=== PATIENT | male | born 1995 | race Caucasian/White ===

== ENCOUNTER 2020-12-31 07:35 | Emergency (ER) | payer SELFPAY ==
[2020-12-31 07:51] VITALS: BP 96/76; PULSE 77; RESP 16; TEMP 36.9; O2SAT 97; BMI 25.8
--- NOTE | 2020-12-31 08:08 | ED.DENTAL ---
HPI - Dental/Oral General Chief complaint: Dental/Oral Stated complaint: dental pain Time Seen by Provider: 12/31/20 08:07 Source: patient Mode of arrival: ambulatory Limitations: no limitations History of Present Illness HPI Narrative: 25-year-old male otherwise healthy came in for evaluation of dental pain. 25-year-old male who broke his right upper premolar tooth (tooth 5.) About 4 weeks ago while chewing hard food, patient presented today with severe pain since last night. Pain described as constant mostly localized to the right upper jaw area, no radiation 2 years or to the neck. No fever or chills. Pain is worse with opening and closing the mouth or chewing food, nothing relieves the pain. Related Data Previous Rx's Medication Instructions Recorded amoxicillin 500 mg PO TID #20 cap 12/31/20 ibuprofen 800 mg PO Q8H PRN #20 tab 12/31/20 Allergies Allergy/AdvReac Type Severity Reaction Status Date / Time No Known Allergies Allergy Verified 12/31/20 08:07 Review of Systems Review of Systems: All other systems are reviewed and are negative Constitutional: Reports as per HPI and Reports no additional constitutional complaints Eyes: Reports as per HPI and Reports no additional eye complaints Reports system reviewed and no additional complaints, except as documented Cardiovascular: Reports as per HPI and Reports no additional cardiovascular complaints Respiratory: Reports as per HPI and Reports no additional respiratory complaints Gastrointestinal: Reports as per HPI and Reports no additional gastrointestinal complaints Genitourinary: Reports no additional female genitourinary complaints Musculoskeletal: Reports no additional musculoskeletal complaints Skin/Breast: Reports system reviewed and no additional complaints, except as docu Psychiatric: Reports no additional psychiatric complaints Endocrine: Reports no additional endocrine complaints Hematologic/Lymphatic: Reports no additional hematologic/lymphatic complaints Allergic/Immunologic: Reports no additional allergic/immunologic complaints Reports system reviewed and no additional complaints, except as documented and Reports Abnormal speech present [facility] Past Medical History Medical History No known health problems Social History Social History Alcohol intake: unknown Smoking Status: Current every day smoker Use of substances other than those prescribed or required for medical reasons: Unknown Advance Directives: No Advance Directives Information Provided: No Physical Exam Vital Signs: Vital Signs: Last Vital Signs Temp 98.4 F 12/31/20 07:51 Pulse 77 12/31/20 07:51 Resp 16 12/31/20 07:51 BP 96/76 12/31/20 07:51 Pulse Ox 97 12/31/20 07:51 Body Mass Index 25.8 Vital signs have been reviewed as appeared to be correct. Blood pressure normal. Heart rate normal. Respiration rate normal. Temperature normal. Oxygen saturation normal. Appearance: Alert. Oriented X3. No acute distress. Head: Normal external exam. Normocephalic. Atraumatic. No Dominique signs noted. No raccoon eyes noted Eyes: PERRLA. EOMI. Conjunctiva and sclera normal. Eyelids normal. ENT: TM's Normal. Pharynx normal. Uvula midline. Moist mucous membranes. No trismus noted. No drooling noted. No muffled voice noted. Dental exam: Tenderness over (tooth 5) 1st upper premolar tooth tenderness , with swelling and tenderness of the gum around it no discrete fluctuation or abscess. Neck: Normal inspection. Neck supple. FROM. No adenopathy. Thyroid Normal. No meningeal signs. No neck mass noted. CVS: Normal heart rate and rhythm. Heart sound normal. No murmurs noted. Pulses normal throughout. Respiratory: No respiratory distress. Painless inspiration. Breath sounds normal. No wheezes/rales/rhonchi noted. Chest nontender. No accessory muscle usage noted or decreased air movement noted. Abdomen: Soft and nontender. Bowel sounds normal in all 4 quadrants. No distention noted. No organomegaly noted. No visible injury noted. Back: No CVA tenderness. Full range of motion noted. Skin: Skin warm and dry. Normal skin color. Normal skin turgor. No rashes/lesions/lacerations noted. Extremities: No lower extremity edema. Extremities exhibit normal range of motion. Extremities nontender. Neuro: Oriented X 3. No motor deficit. No sensory deficit. Reflexes normal. Course Course Course Narrative: Assessment and plan: Dental infection and decay. Start the patient on amoxicillin/ibuprofen 800 mg/patient was instructed to follow up with dentist as soon as possible. Discharge Plan Discharge Clinical Impression: Toothache, Dental caries Patient Disposition: Home, Self-Care Instructions: Toothache (ED) Additional Instructions: Follow-up with your dentist in 2 days. Prescriptions: New amoxicillin 500 mg capsule 500 mg PO TID Qty: 20 RF: 0 ibuprofen 800 mg tablet 800 mg PO Q8H PRN (Reason: pain) Qty: 20 RF: 0 Referrals: Physician,None [Primary Care Provider] - 2 days (See your dentist in 2 days)
[2020-12-31] MEDS: oxyCODONE HCl Immed Release 5 MG TABLET PO (08:19)
[2020-12-31] MEDS: Amoxicillin 500 MG CAPSULE PO (08:19)
--- NOTE | 2020-12-31 09:00 | PC.NURSE ---
Patient arrives complaining of dental pain to upper right molar. Patient reports breaking tooth ~ 1 month ago. Last night awoke to worsening pain. Patient without obvious swelling or enlarged lymph nodes. No visible drainage. Respirations regular and even. Skin pwd. Evaluated by Dr. Santillan. Patient medicated with Amoxicillin and Oxycodone. Tolerated well. Will continue to monitor.
== END 2020-12-31 09:15 | disposition home or self-care (01) ==
PROVIDERS: Emergency Provider Emergency Medicine
DX: K02.9 Dental caries, unspecified (principal); K08.89 Other specified disorders of teeth and supporting structures; F17.200 Nicotine dependence, unspecified, uncomplicated
CPT/HCPCS: 99283; 99284

== ENCOUNTER 2021-04-25 04:15 | Emergency (ER) | payer SELFPAY ==
--- NOTE | ~2021-04-25 | US_ITS ---
EXAMINATION: US SCROTUM CLINICAL INFORMATION: Testicular pain.. COMPARISON: None TECHNIQUE: A sonogram of the scrotum was performed assessing nguyen-scale appearance and color Doppler flow. Spectral Doppler analysis of the arterial and venous flow were performed in the testes bilaterally. FINDINGS: RIGHT: Right testicle measures 5.2 x 2.6 x 3.6 cm, volume 25.4 mL. No focal testicular parenchymal lesions are visualized. Spectral Doppler analysis of the arterial and venous flow is normal in the right testis. Right epididymal head is normal in size. No right hydrocele or varicocele is seen. Right epididymal Doppler flow is normal. LEFT: Left testicle measures 5.1 x 2.6 x 3.3 cm, volume 23.4 mL. No focal testicular parenchymal lesions are visualized. Spectral Doppler analysis of the arterial and venous flow is normal in the left testis. Left epididymal head is normal in size. Cyst in the epididymal tail measuring 0.3 cm. No left hydrocele or varicocele is seen. Left epididymal Doppler flow is normal. US/US scrotum doppler IMPRESSION: No testicular torsion. Normal vascularity.
--- NOTE | ~2021-04-25 | US_ITS ---
EXAMINATION: US SCROTUM CLINICAL INFORMATION: Testicular pain.. COMPARISON: None TECHNIQUE: A sonogram of the scrotum was performed assessing nguyen-scale appearance and color Doppler flow. Spectral Doppler analysis of the arterial and venous flow were performed in the testes bilaterally. FINDINGS: RIGHT: Right testicle measures 5.2 x 2.6 x 3.6 cm, volume 25.4 mL. No focal testicular parenchymal lesions are visualized. Spectral Doppler analysis of the arterial and venous flow is normal in the right testis. Right epididymal head is normal in size. No right hydrocele or varicocele is seen. Right epididymal Doppler flow is normal. LEFT: Left testicle measures 5.1 x 2.6 x 3.3 cm, volume 23.4 mL. No focal testicular parenchymal lesions are visualized. Spectral Doppler analysis of the arterial and venous flow is normal in the left testis. Left epididymal head is normal in size. Cyst in the epididymal tail measuring 0.3 cm. No left hydrocele or varicocele is seen. Left epididymal Doppler flow is normal. US/US scrotum IMPRESSION: No testicular torsion. Normal vascularity.
--- NOTE | ~2021-04-25 | CT_ITS ---
EXAMINATION: CT ABDOMEN AND PELVIS WITHOUT CONTRAST CLINICAL INFORMATION: Left abdominal/scrotal pain. Rule out renal colic. COMPARISON: None TECHNIQUE: Multidetector volumetric imaging was performed from the superior aspect of the liver through the pubic symphysis. Sagittal and coronal reformatted images were obtained on the technologist's workstation. This CT examination was performed using dose optimization techniques as appropriate, variously including the following: *Automated exposure control *Adjustment of mA and/or kV according to patient size (this includes techniques or standardized protocols for targeted exams where dose is matched to indication/reason for exam; i.e. extremities or head) *Use of iterative reconstruction technique DLP: 532 mGy-cm FINDINGS: LUNG BASES: The visualized lung bases are unremarkable. LIVER, GALLBLADDER, AND BILIARY TREE: The liver is normal in size, shape, and attenuation. No focal hepatic lesion or biliary ductal dilatation is present. The gallbladder is unremarkable with no evidence of radiopaque gallstones, gallbladder wall thickening, or obvious pericholecystic inflammatory changes. PANCREAS: Unremarkable. SPLEEN: Unremarkable. ADRENAL GLANDS: Unremarkable. KIDNEYS AND URETERS: The kidneys are normal in size, shape, and attenuation. Mild left hydroureteronephrosis. 0.5 cm calculus in the distal ureter, approximately 2 cm proximal to the ureterovesicular junction. There are [address] at this location in a row. No right hydroureteronephrosis. There are 2 right-sided calculi, measuring up to 0.3 cm, 9 cm from the posterior axillary line. BLADDER: Unremarkable. GASTROINTESTINAL TRACT: The stomach is unremarkable. Normal caliber small bowel. No obstruction. Normal appendix. No colonic wall thickening or inflammatory change. No free air or free fluid. ABDOMINAL WALL: No significant hernia is appreciated. LYMPH NODES: Normal. VASCULAR: Unremarkable. PELVIC VISCERA: The prostate and seminal vesicles are unremarkable. OSSEOUS STRUCTURES: No acute or suspicious osseous abnormality. CT/CT abdomen pelvis wo con IMPRESSION: Mild left hydroureteronephrosis with multiple distal ureteral calculi measuring up to 0.5 cm. Nonobstructing right renal calculi.
--- NOTE | 2021-04-25 04:28 | ED_ITS ---
HPI - Male Genitourinary General Chief complaint: Urogenital-Male Stated complaint: abd pain/ testicle pain Time Seen by Provider: 04/25/21 04:20 Source: patient Mode of arrival: ambulatory History of Present Illness HPI Narrative: 26-year-old male without significant past medical history presents with acute onset of left testicular pain that started approximately 2 hours ago and patient states radiates up through his groin into his lower abdomen without associated fever, chills. Patient denies any urinary symptoms and states that this is never happened before. He has had prior renal colic at the age of 17. Related Data Previous Rx's Medication Instructions Recorded amoxicillin 500 mg capsule 500 mg PO TID #20 cap 12/31/20 ibuprofen 800 mg tablet 800 mg PO Q8H PRN #20 tab 12/31/20 ketorolac 10 mg tablet 10 mg PO Q6H PRN 5 Days #20 tab 04/25/21 prednisone 20 mg tablet 20 mg PO DAILY #4 tab 04/25/21 tamsulosin 0.4 mg capsule (Flomax) 0.4 mg PO BEDTIME #4 cap 04/25/21 Allergies Allergy/AdvReac Type Severity Reaction Status Date / Time No Known Allergies Allergy Verified 12/31/20 08:07 Review of Systems Review of Systems: Pertinent positives and negatives as stated in HPI 10 point review of systems is otherwise negative. PMFSH Past Medical History Source: nursing notes reviewed Medical History No known health problems Social History Social History Alcohol intake: unknown Advance Directives: No Physical Exam Vital Signs: Vital Signs: Last Vital Signs Temp 98.7 F 04/25/21 04:30 Pulse 87 04/25/21 04:30 Resp 20 04/25/21 04:30 BP 150/81 H 04/25/21 04:30 Pulse Ox 97 04/25/21 04:30 Body Mass Index 24.4 VITAL SIGNS: Reviewed. GENERAL: Well developed, well nourished, in no acute distress. HEAD: Normocephalic/atraumatic EYES: PERRLA, EOMI OROPHARYNX: no oral lesions noted, posterior pharynx clear LUNGS: Normal breath sounds. CARDIOVASCULAR: Regular rate and rhythm without noted murmurs ABDOMEN: Soft, non-tender, non-distended with bowel sounds. : Circumcised male, left testicle riding somewhat higher than right with pain on palpation but no observed erythema, epididymal tenderness no evidence of hernia SKIN: Inspection of the skin reveals no rashes NEUROLOGIC: Alert and oriented x 4. Strength and sensation to light touch were grossly intact x 4. Course Course Course Narrative: 26-year-old male with history and clinical presentation consistent with testicular torsion, renal colic, and gave pain meds and ordered scrotal ultrasound. On review of imaging the testicular duplex was negative for evidence of torsion in suspected likely renal colic and on review of CT scan there is noted mild left hydroureteronephrosis with multiple distal ureteral calculi measuring up to 0.5 cm. On re-evaluation patient has had ?50% improvement in his symptoms? and on discussion regarding referral to Urology he states that he is catching a bus up to [place] this morning at 10:30 a.m.. He says that he will be able to pick his prescriptions up from the pharmacy and he was strongly encouraged to follow-up with urology. Signed out to Dr. Lamar [facility] - Male Genitourinary Lab Data Result diagrams: 04/25/21 05:21 04/25/21 05:21 Labs: Lab Results 04/25/21 04/25/21 04/25/21 Range/Units 05:21 05:21 05:21 WBC 10.1 (4.8-10.8) X10*3/uL RBC 4.66 (4.60-5.80) X10*6/uL Hgb 14.0 (14.0-18.0) g/dl Hct 39.8 L (42-52) % MCV 85.4 (80-98) fL MCH 30.0 (27.0-33.0) pg MCHC 35.2 (31.0-36.0) g/dl RDW 12.5 (11.0-16.0) % Plt Count 166 (160-400) X10*3/uL MPV 9.7 (9.4-12.4) fL Immature Gran % (Auto) 0.3 (0.0-0.4) % Neut % (Auto) 72.5 (45-73) % Lymph % (Auto) 17.9 L (20-40) % [place] % (Auto) 7.6 (2-11) % Eos % (Auto) 1.4 (0-4) % Baso % (Auto) 0.3 (0-2) % Lymph # (Auto) 1.8 (1.2-4.9) X10*3/uL [place] # (Auto) 0.8 (0.1-1.2) X10*3/uL Eos # (Auto) 0.1 (0.0-0.4) X10*3/uL Baso # (Auto) 0.0 (0.0-0.2) X10*3/uL Abs Immat Gran (auto) 0.03 (0.00-0.03) X10*3/uL Absolute Neuts (auto) 7.3 (2.0-8.3) X10*3/uL Absolute Nucleated RBC 0.000 (0.0-0.012) X10*3/uL Nucleated RBC % (auto) 0.0 (0.0-0.2) /100WBC Sodium 141 (135-145) mmol/L Potassium 3.4 (3.3-5.1) mmol/L Chloride 111 H (96-108) mmol/L Carbon Dioxide 22 (22-29) mmol/L Anion Gap 11 L (12-20) BUN 15 (9-16) mg/dL Creatinine 1.61 H (0.5-1.4) mg/dL Estim Creat Clear Calc 71.7 Estimated GFR 52 Random Glucose 112 (60-115) mg/dL Calcium 9.1 (8.4-10.2) mg/dL Total Bilirubin < 0.2 (0.0-1.0) mg/dL AST 16 (5-37) U/L ALT 35 (0-40) U/L Alkaline Phosphatase 53 (39-117) U/L Total Protein 6.4 L (6.5-8.0) g/dL Albumin 4.0 (3.5-5.0) g/dL COVID-19 (PETE) Negative (Negative) COVID-19 Clin Com See Note Discharge Plan Discharge Clinical Impression: Renal colic, Ureterolithiasis, Creatinine elevation Patient Disposition: Home, Self-Care Instructions: Renal Colic (ED), Ureteral Stones (ED) Additional Instructions: 1. Increase fluid hydration especially with water and avoid and/or decrease use of caffeinated/carbonated beverages. 2. Strongly recommend that you follow-up with a urologist and the referral is provided to you below. 3. Tylenol 1000 mg, orally, every 6 hours as needed for pain control. Do not exceed 4000 mg within 24 hours. 4. Follow-up with your primary care provider in the next 2-3 days for re- evaluation. Return to the ER for acute worsening of symptoms. Prescriptions: New ketorolac 10 mg tablet 10 mg PO Q6H PRN (Reason: pain) 5 Days Qty: 20 RF: 0 tamsulosin [Flomax] 0.4 mg capsule 0.4 mg PO BEDTIME Qty: 4 RF: 0 prednisone 20 mg tablet 20 mg PO DAILY Qty: 4 RF: 0 No Action amoxicillin 500 mg capsule 500 mg PO TID Qty: 20 RF: 0 ibuprofen 800 mg tablet 800 mg PO Q8H PRN (Reason: pain) Qty: 20 RF: 0 Referrals: Physician,None [Primary Care Provider] - 2 days Joshua Dias MD [Physician] - 2 days (Evaluation and treatment for multiple ureteral stones (0.5 mm) with elevated creatinine and no leukocytosis. Pain well controlled.)
[2021-04-25 04:30] VITALS: BP 150/81; PULSE 87; RESP 20; TEMP 37.1; O2SAT 97; BMI 24.4
[2021-04-25] MEDS: Ketorolac Tromethamine 15 MG/ML VIAL IVPUSH (04:41)
[2021-04-25] MEDS: fentaNYL citrate/PF 100 MCG/2 ML VIAL 12.5 MCG IVPUSH (04:41)
[2021-04-25] MEDS: Acetaminophen 325 MG TABLET 975 MG PO (04:41)
--- NOTE | 2021-04-25 04:48 | PC.NURSE ---
pT MEDICATED CHARTED. OFF TO U/S VIA STRETCHER.
[2021-04-25] MEDS: 0.9 % Sodium Chloride 1,000 ML 999 ML IV (05:26)
[2021-04-25 05:27] LABS: MANUAL DIFF FLAG NO
[2021-04-25 05:30] LABS: Basophils Percent Auto 0.3 % (0-2); Eosinophils Absolute Auto 0.1 X10*3/uL (0.0-0.4); Eosinophils Percent Auto 1.4 % (0-4); Hematocrit 39.8 % (42-52); Imm Gran Abs Auto 0.03 X10*3/uL (0.00-0.03); Imm Gran Pct Auto 0.3 % (0.0-0.4); Lymphocytes Absolute Auto 1.8 X10*3/uL (1.2-4.9); Lymphocytes Percent Auto 17.9 % (20-40); Mean Corpuscular HGB Conc 35.2 g/dl (31.0-36.0); Mean Corpuscular Volume 85.4 fL (80-98); Mean Platelet Volume 9.7 fL (9.4-12.4); Monocytes Absolute Auto 0.8 X10*3/uL (0.1-1.2); Monocytes Percent Auto 7.6 % (2-11); Neutrophils Absolute Auto 7.3 X10*3/uL (2.0-8.3); Neutrophils Percent Auto 72.5 % (45-73); Platelet Count 166 X10*3/uL (160-400); Red Blood Count 4.66 X10*6/uL (4.60-5.80); Red Cell Distribution Width 12.5 % (11.0-16.0); White Blood Count 10.1 X10*3/uL (4.8-10.8)
[2021-04-25 05:45] LABS: COVID-19 Test Negative (Negative); IDNOW Serial# 9DD0AD1C
[2021-04-25 05:52] LABS: Alanine Aminotransferase 35 U/L (0-40); Alkaline Phosphatase 53 U/L (39-117); Anion Gap 11 (12-20); Aspartate Amino Transferase 16 U/L (5-37); Bilirubin Total < 0.2 mg/dL (0.0-1.0); Blood Urea Nitrogen 15 mg/dL (9-16); Calcium 9.1 mg/dL (8.4-10.2); Carbon Dioxide 22 mmol/L (22-29); Chloride 111 mmol/L (96-108); Creatinine Clr Calc Pharmacy 71.7; Estimated Glomerular Filt Rate 52; Glucose Random 112 mg/dL (60-115); Potassium 3.4 mmol/L (3.3-5.1); Sodium 141 mmol/L (135-145); Total Protein 6.4 g/dL (6.5-8.0)
[2021-04-25] MEDS: Tamsulosin HCL 0.4 MG CAPSULE PO (06:14)
== END 2021-04-25 08:24 | disposition home or self-care (01) ==
PROVIDERS: Emergency Provider Student in an Organized Health Care Education/Training Program
DX: N13.2 Hydronephrosis with renal and ureteral calculous obstruction (principal); R94.4 Abnormal results of kidney function studies; N50.812 Left testicular pain; Z20.822 Contact with and (suspected) exposure to COVID-19
CPT/HCPCS: 36415; 74176; 76870; 80053; 85025; 87635; 93975; 96361; 96374; 96375; 99283; 99284; J1885; J3010

== ENCOUNTER 2023-03-17 20:00 | Emergency (ER) | payer SELFPAY ==
[2023-03-17 20:05] VITALS: BP 133/87; PULSE 76; RESP 18; TEMP 36.6; O2SAT 100; BMI 24.4
--- NOTE | 2023-03-17 20:09 | ED.GENADULT ---
HPI - General Adult General Chief complaint: Allergic Reaction Stated complaint: Allergic reaction/Chest pain/right eye swollen Time Seen by Provider: 03/17/23 23:02 Source: patient Mode of arrival: ambulatory Limitations: no limitations History of Present Illness HPI narrative: 20-year-old male with no significant medical history presents the ER for evaluation of hives all over his body that started yesterday. He states that started in his left wrist and spread to his left forearm, abdomen, neck, face and right eye. He states the hives are red, raised and very itchy. He has been taking Benadryl which improves the itch but not the hive itself. He denies any wheezing, swelling of the lips, tongue. No difficulty swallowing. No history of allergic reactions in the past. He states he has had new exposures but unclear what this could be from. He has been drinking a new mushroom tea. He denies any new detergents, soaps, lotions. complaint: Hives Onset (ago): day(s) (1) Location: face, eyes, chest, abdomen, left and upper extremity Severity: moderate Quality: other (Itchy) Pain Consistency: constant Relieving factors: medication Exacerbating factors: none Associated symptoms: denies other symptoms Treatments prior to arrival: none Related Data Previous Rx's Medication Instructions Recorded amoxicillin 500 mg capsule 500 mg PO TID #20 caps 12/31/20 ibuprofen 800 mg tablet 800 mg PO Q8H PRN pain #20 tabs 12/31/20 ketorolac 10 mg tablet 10 mg PO Q6H PRN pain 5 days #20 04/25/21 tabs prednisone 20 mg tablet 20 mg PO DAILY #4 tabs 04/25/21 tamsulosin 0.4 mg capsule (Flomax) 0.4 mg PO BEDTIME #4 caps 04/25/21 famotidine 40 mg tablet (Pepcid) 40 mg PO DAILY #14 tabs 03/17/23 prednisone 10 mg tablets in a dose See Taper PO DAILY #48 ea 03/17/23 pack Allergies Allergy/AdvReac Type Severity Reaction Status Date / Time No Known Allergies Allergy Verified 12/31/20 08:07 Review of Systems Review of Systems: Yes all other systems are reviewed and are negative PMFSH Past Medical History Medical History No known health problems Social History Social History Alcohol intake: unknown Smoked in Last 30 Days: No Substance Use Type: Marijuana Substance Use Frequency: Daily Advance Directives: No Advance Directives Information Provided: Yes Physical Exam ED Vital Signs: Vital Signs - 24 hr 03/17/23 20:05 03/17/23 22:31 Temperature 97.8 F 98.1 F Pulse Rate 76 76 Respiratory Rate 18 17 Blood Pressure 133/87 128/86 Pulse Oximetry 100 99 Oxygen Delivery Method Room Air Room Air BMI result Body Mass Index 24.4 Appearance: Alert. Oriented X3. No acute distress. Head: normocephalic, atraumatic. Eyes: Pupils equal, round and reactive to light. ENT: Pharynx normal. No tonsillar swelling or exudate. Airway patent. no swelling of the lips or tongue. Neck: Normal inspection. Neck supple. CVS: Normal heart rate and rhythm. Pulses normal. Respiratory: No respiratory distress. Breath sounds normal. Abdomen: Soft and nontender. +BS x4 Skin: Skin warm and dry. Normal skin color. Normal skin turgor. Urticarial type rash over the lower portion of the abdomen, entire left arm, right eye, posterior neck Extremities: No lower extremity edema. No joint swelling. Neuro/psych: Oriented X 3. No motor deficit. No sensory deficit. CN II-XII intact. Normal speech and cognition. Course Course Course Narrative: RME: 28 yold male presents to the ED for allergic reaction since yesterday. patient had mutliple new exposures yesterday. patient has generalzied uticaria. lungs are clear. negative for lip/tongue/uvula swelling. Patinet took benadryl 50mg 40 minutes ago. prednisoen and pepcid orddered. Charge nurse made aware of patient for bed avialbility. Medications Administered Discontinued Medications Generic Name Dose Route Start Last Admin Trade Name Freq PRN Reason Stop Dose Admin Diphenhydramine HCl 25 mg 03/17/23 20:15 03/17/23 22:59 Diphenhydramine Hcl 25 Mg Capsule PO 03/17/23 20:16 25 mg ONCE ONE Administration Diphenhydramine HCl 25 mg 03/17/23 23:05 03/17/23 23:08 Diphenhydramine Hcl 25 Mg Capsule PO 03/17/23 23:06 25 mg ONCE ONE Administration Famotidine 20 mg 03/17/23 20:09 03/17/23 22:59 Famotidine 20 Mg Tablet PO 03/17/23 20:10 20 mg ONCE ONE Administration Prednisone 60 mg 03/17/23 20:09 03/17/23 22:58 Prednisone 20 Mg Tablet PO 03/17/23 20:10 60 mg ONCE ONE Administration Medical Decision Making Medical Decision Making MDM Narrative: 28-year-old male presents to the ER for evaluation of diffuse urticarial rash. No airway involvement. Unknown etiology. He was given a dose of prednisone, Pepcid, Benadryl here in the emergency department. The hives had significant improvement within 1 hour. He was feeling better. We discussed treatment of idiopathic urticaria. Will discharge home with a prednisone taper, Pepcid, Benadryl. He will follow-up with his primary care doctor. Return precautions were discussed Differential Diagnosis Differential Diagnoses: The differential diagnosis associated with the presentation includes idiopathic urticaria, allergic reaction, contact dermatitis, atopic dermatitis Independent Historian Clinical information obtained from an independent historian. History obtained from or confirmed by: Friend External Record Review External record reviewed: Prior outpatient labs Prescription Management I considered prescription management with: Other (Prednisone taper) Critical Care Time Critical Care Time Critical Care Time: No Discharge Plan Discharge Clinical Impression: Urticaria Patient Disposition: Home, Self-Care Instructions: Urticaria (ED) Additional Instructions: Continue the steroids as directed. Complete the entire taper and do not miss any doses. Start them 1st thing tomorrow morning. Continue Benadryl 50 mg every 6-8 hours as needed for hives and itching. Your best not itch, apply ice when itchy. You can also try topical Benadryl spray or hydrocortisone ointment, found [id number]. If you develop new or worsening symptoms call 911 or come back to the ER for further evaluation. Prescriptions: New prednisone 10 mg tablets,dose pack See Taper PO DAILY Qty: 48 0RF Taper: Prednisone 50 mg daily for 3 Days and 0 Hour 40 mg daily for 3 Days and 0 Hour 30 mg daily for 3 Days and 0 Hour 20 mg daily for 3 Days and 0 Hour 10 mg daily for 3 Days and 0 Hour famotidine [Pepcid] 40 mg tablet 40 mg PO DAILY Qty: 14 0RF No Action ketorolac 10 mg tablet 10 mg PO Q6H PRN (Reason: pain) 5 Days Qty: 20 0RF Rx Instructions: Patient received IV Toradol here in the emergency room. tamsulosin [Flomax] 0.4 mg capsule 0.4 mg PO BEDTIME Qty: 4 0RF prednisone 20 mg tablet 20 mg PO DAILY Qty: 4 0RF amoxicillin 500 mg capsule 500 mg PO TID Qty: 20 0RF ibuprofen 800 mg tablet 800 mg PO Q8H PRN (Reason: pain) Qty: 20 0RF Interventions: ED Discharge Assessment Last Done: 03/18/23 00:01 Discharge Date/Time: 03/18/23 00:02
--- NOTE | 2023-03-17 21:15 | PC.NURSE ---
Patient came to triage stated This shit in my eye is getting worse, when ya'll gonna call me back . Informed patient that when an appropriate room is available that he would be called back to be placed in room. Pt states what the fuck and walked back to seat.
[2023-03-17 22:31] VITALS: BP 128/86; PULSE 76; RESP 17; TEMP 36.7; O2SAT 99
== END 2023-03-18 00:02 | disposition home or self-care (01) ==
PROVIDERS: Emergency Provider Internal Medicine
DX: L50.0 Allergic urticaria (principal); Z79.899 Other long term (current) drug therapy
CPT/HCPCS: 99284